=== PATIENT | male | born 1970 | race African-American/Black ===

== ENCOUNTER 2018-09-08 20:40 | Emergency (ER) | payer OTHER ==
[~2018-09-08] VITALS: Ht 175.3 cm; Wt 74.8 kg
[2018-09-08 21:25] VITALS: Ht 175.3 cm; Wt 74.8 kg
[2018-09-08 22:36] VITALS: BP 114/78
== END 2018-09-08 22:37 | disposition home or self-care (01) ==
LOC: ED 20:40
DX: L03.011 Cellulitis of right finger (principal); I10 Essential (primary) hypertension
CPT/HCPCS: J2001